=== PATIENT | male | born 1995 | race Caucasian/White ===

== ENCOUNTER 2018-09-20 21:02 | Emergency (ER) | payer SELFPAY ==
[2018-09-20 21:50] VITALS: BP 122/70
[2018-09-20] MEDS ORDERED: CENTANY30 GM TP (21:53)
[2018-09-20] MEDS ORDERED: BACTRIM DS TAB1 EACH PO (21:53)
== END 2018-09-20 21:58 | disposition home or self-care (01) ==
LOC: ED 21:02
DX: L73.9 Follicular disorder, unspecified (principal); F17.210 Nicotine dependence, cigarettes, uncomplicated